=== PATIENT | female | born 1995 | race Two or more races ===

== ENCOUNTER 2019-11-27 18:12 | Emergency (ER) | payer MEDICAID ==
[~2019-11-27] VITALS: Ht 162.6 cm; Wt 58.0 kg
[2019-11-27] MEDS ORDERED: IBUPROFEN 600MG TABLET PO STA (21:47)
[2019-11-27 22:21] VITALS: BP 120/82
== END 2019-11-27 22:22 | disposition home or self-care (01) ==
LOC: ER 18:12
DX: S16.1XXA Strain of muscle, fascia and tendon at neck level, initial encounter (principal); S00.83XA Contusion of other part of head, initial encounter; M25.519 Pain in unspecified shoulder; V89.2XXA Person injured in unspecified motor-vehicle accident, traffic, initial encounter; W22.12XA Striking against or struck by front passenger side automobile airbag, initial encounter; Y93.89 Activity, other specified; Y92.89 Other specified places as the place of occurrence of the external cause; Y99.8 Other external cause status
CPT/HCPCS: 99283